=== PATIENT | female | born 1950 | race Caucasian/White ===

== ENCOUNTER 2017-01-27 05:50 | Inpatient (IN) | payer MEDICARE, OTHER ==
[~2017-01-27 05:50] MED LIST: CYCLOBENZAPRINE5 M1 PO; MOBIC15 M2 PO; MULTIVITAMINS1 EAC6 PO; OCUVITE WITH L1 EACH PO; TURMERIC500 M2 PO; TYLENOL325 M2 PO
[2017-01-27 07:11] LABS: ANION GAP 16 mmol/L (0-20); BLOOD UREA NITROGEN 10 mg/dl (6-24); CALCIUM 9.4 mg/dl (8.5-10.5); CARBON DIOXIDE-VENOUS 24 mmol/L (22-32); CHLORIDE 105 mmol/l (96-110); CREATININE 0.48 mg/dl (0.50-1.10); GLUCOSE 94 mg/dL (70-110); POTASSIUM 3.9 mmol/L (3.7-5.1); SODIUM 141 mmol/L (135-145); eGFR VALUE FOR BLACK >90 mL/Min
[2017-01-28 06:01] LABS: BASO % 0.1 % (0-2); EOS % 0.1 % (0-7); HCT-HEMATOCRIT 36.7 % (34.0-49.0); HGB-HEMOGLOBIN 12.3 gm/dl (12.0-15.5); IMMATURE GRANULOCYTES ABSOLUTE 0.02 tho/cmm (0-0.03); IMMATURE GRANULOCYTES PERCENT 0.2 % (0-0.3); LYMPH ABSOLUTE COUNT 2.1 tho/cmm (0.8-4.5); MCH (MEAN CORPUSCULAR HGB) 29.9 pg (28.0-32.0); MCHC MEAN CORPUSCULAR HGB CONC 33.5 % (32.0-36.0); MCV (MEAN CELL VOLUME) 89.1 fl (82.0-96.0); MEAN PLATELET VOLUME 9.4 cmc (9.4-12.4); MONO % 8.2 % (0-12); NEUTROPHIL ABSOLUTE COUNT 8.5 tho/cmm (1.6-8.0); NEUTROPHIL-AUTOMATED 8.5 tho/cmm (1.6-8.0); NEUTROPHILS % 73.4 % (40-80); PLATELET COUNT 268 tho/cmm (150-450); RED BLOOD COUNT 4.12 mil/cmm (4.00-5.20); RED CELL DISTRIBUTION WIDTH 14.3 % (12.4-16.4); WHITE BLOOD COUNT 11.6 tho/cmm (4.0-10.0)
[2017-01-28 06:12] LABS: ANION GAP 11 mmol/L (0-20); BLOOD UREA NITROGEN 9 mg/dl (6-24); CALCIUM 8.8 mg/dl (8.5-10.5); CARBON DIOXIDE-VENOUS 28 mmol/L (22-32); CHLORIDE 109 mmol/l (96-110); CREATININE 0.44 mg/dl (0.50-1.10); GLUCOSE 92 mg/dL (70-110); MAGNESIUM 2.1 mg/dl (1.8-2.6); POTASSIUM 4.1 mmol/L (3.7-5.1); SODIUM 144 mmol/L (135-145); eGFR VALUE FOR BLACK >90 mL/Min
--- NOTE | 2017-01-28 19:31 | NUR ---
VIRTUAL CARE NOTE: PT. IN BED, STATES PAIN IS FINE AND THAT SHE FEELS FINE. STATES HAS WALKED 2-3 TIMES TODAY, SHE WASN'T FORSURE. ENCOURAGED AT LEAST X1 MORE WALK TONIGHT. DENIES FURTHER NEEDS. INSTRUCTED TO CALL FOR FUTURE QUESTIONS OR REQUESTS. STATES VERBAL AGREEMENT.
[2017-01-28] MEDS ORDERED: NORCO 5-325 TA1 EACH PO (23:27)
== END 2017-01-29 11:29 | DRG 331 ==
LOC: SHSB 05:50 → ORW 07:32 → 5WD 12:15
PROVIDERS: Anesthesiology; ADMIT Colon & Rectal Surgery
PROC: 0DSP4ZZ Reposition Rectum, Percutaneous Endoscopic Approach (ICD-10-PCS; principal; 2017-01-27)
PROC: 0DBN4ZZ Excision of Sigmoid Colon, Percutaneous Endoscopic Approach (ICD-10-PCS; 2017-01-27)
PROC: 8E0W8CZ Robotic Assisted Procedure of Trunk Region, Via Natural or Artificial Opening Endoscopic (ICD-10-PCS; 2017-01-27)
DX: K62.3 Rectal prolapse (principal); R15.9 Full incontinence of feces; K59.09 Other constipation; M19.90 Unspecified osteoarthritis, unspecified site; Z90.710 Acquired absence of both cervix and uterus; K63.89 Other specified diseases of intestine; Z91.040 Latex allergy status; Z91.018 Allergy to other foods; Z23 Encounter for immunization
CPT/HCPCS: G0009; J1170; J1335; J1644; J1650; J1885; J2250; J7030